=== PATIENT | female | born 1935 | race Caucasian/White ===

== ENCOUNTER 2016-09-17 09:47 | Inpatient (IN) | payer BC, OTHER ==
[~2016-09-17] VITALS: Ht 157.5 cm; Wt 60.0 kg
[2016-09-17 09:49] VITALS: Ht 157.5 cm; Wt 60.0 kg
[2016-09-17] MEDS ORDERED: SODIUM CHLORIDE 0.9% 1L BAG IV* STA (09:57)
[2016-09-17] MEDS ORDERED: ACETAMINOPHEN 325 MG TAB PO STA (09:57)
[2016-09-17 10:38] LABS: ADD SCAN DIFF NO
[2016-09-17 10:41] LABS: BASOPHILS % 0.1 % (0.0-2.0); EOSINOPHILS # 0.1 10^3/ul (0.0-0.5); EOSINOPHILS % 1.4 % (0.0-7.0); HEMATOCRIT 30.1 % (37.0-47.0); HEMOGLOBIN 9.4 g/dl (12.0-16.0); LYMPHOCYTES # 1.2 10^3/ul (0.8-2.9); LYMPHOCYTES % 16.6 % (15.0-51.0); MEAN CORPUSCULAR HEMOGLOBIN 21.9 pg (29.0-33.0); MEAN CORPUSCULAR HGB CONC 31.2 g/dl (32.0-37.0); MEAN CORPUSCULAR VOLUME 70.2 fl (82.0-101.0); MEAN PLATELET VOLUME 11.5 fl (7.4-10.4); MONOCYTE # 0.4 10^3/ul (0.3-0.9); NEUTROPHIL # 5.3 10^3/ul (1.6-7.5); NEUTROPHILS % 75.6 % (39.0-77.0); PLATELET COUNT 193 10^3/UL (140-415); RED BLOOD COUNT 4.29 10^6/ul (4.20-5.40); RED CELL DISTRIBUTION WIDTH 15.2 % (11.5-14.5)
[2016-09-17] MEDS ORDERED: DEXA0.5T PO (10:48)
[2016-09-17] MEDS ORDERED: ATOR40TA68 PO (10:48)
[2016-09-17] MEDS ORDERED: VENL37.59 PO (10:49)
[2016-09-17] MEDS ORDERED: FLUD0.1T10 PO (10:49)
[2016-09-17] MEDS ORDERED: DRON400T2 PO (10:49)
[2016-09-17] MEDS ORDERED: ASCO500C7 PO (10:50)
[2016-09-17] MEDS ORDERED: ASPI81TA3 PO (10:50)
[2016-09-17] MEDS ORDERED: LEVE250T66 PO (10:50)
[2016-09-17 10:54] LABS: INR 1.05; PROTIME 13.7 Sec (12.2-14.2); PT RATIO 1.1
[2016-09-17 10:55] LABS: PARTIAL THROMBOPLASTIN TIME 25.7 Sec (25.0-35.0)
[2016-09-17 11:00] LABS: ALBUMIN 4.2 g/dl (3.3-4.9); ALBUMIN/GLOBULIN RATIO 1.1; BILIRUBIN,INDIRECT 0.3 mg/dl (0-1.1); BILIRUBIN,TOTAL 0.3 mg/dl (0.2-1.3); CALCIUM 9.4 mg/dl (8.4-10.2); CREATININE 1.38 mg/dl (0.44-1.00); POTASSIUM 3.8 mmol/L (3.5-5.1)
[2016-09-17 11:09] LABS: TROPONIN-I 0.013 ng/ml (0.00-0.12)
--- NOTE | 2016-09-17 11:14 | RADRPT ---
PROCEDURE: XR Chest. CLINICAL INDICATION: Sepsis TECHNIQUE: Anterior chest x-ray. COMPARISON: None. FINDINGS: The lungs are clear. No pleural effusion identified. There is no evidence of pneumothorax. Dual lead left cardiac pacemaker demonstrates satisfactory position. There is atherosclerotic calcification of the aorta. The cardiomediastinal silhouette is otherwise unremarkable. The soft tissues are normal. Osseous structures are unremarkable. IMPRESSION: 1. No acute disease is seen in the chest. RPTAT: QQ .Romario Dumont MD, Date Time Electronically viewed and signed by .Romario Dumont MD, on 09/17/2016 11:13 .M/
--- NOTE | 2016-09-17 11:24 | ERA ---
ER Documentation Chief Complaint Date/Time DATE: 09/17/16 TIME: 11:23 Chief Complaint flu like symptoms x 3 days HPI 81-year-old female who presents to the emergency room with family member for 3 days of symptoms that are flulike symptoms including rhinorrhea, dry cough and slight malaise. No nausea vomiting or diarrhea, no abdominal pain, no dysuria, no flank pain, no sore throat, no headache, no rash. Lately decreased oral intake over this timeframe. ROS All systems reviewed and are negative except as per history of present illness. Medications Home Meds Reported Medications Ascorbic Acid* (Vitamin C*) 500 Mg Capsule.sa, 500 MG PO DAILY, CAP 09/17/16 Aspirin* (Aspirin* Chew) 81 Mg Tab.chew, 81 MG PO DAILY, TAB.CHEW 09/17/16 Levetiracetam* (Keppra*) 250 Mg Tab, 250 MG PO BID, TAB 09/17/16 Dronedarone Hydrochloride* (Multaq*) 400 Mg Tablet, 400 MG PO BID, TAB 09/17/16 Fludrocortisone* (Fludrocortisone*) 0.1 Mg Tablet, 0.1 MG PO DAILY, TAB 09/17/16 Venlafaxine Hcl* (Effexor XR*) 37.5 Mg Tab.er.24, 37.5 MG PO DAILY, TAB 09/17/16 Dexamethasone* (Dexamethasone*) 0.5 Mg Tablet, 0.25 MG PO DAILY, TAB 09/17/16 Atorvastatin* (Atorvastatin*) 40 Mg Tablet, 40 MG PO QHS, #30 TAB 09/17/16 Allergies Allergies: Coded Allergies: No Known Allergy (Unverified , 09/17/16) FmHx Family History: No diabetes Physical Exam Vitals Vital Signs Date Time Temp Pulse Resp B/P Pulse Ox O2 Delivery O2 Flow Rate FiO2 09/17/16 11:21 100.4 80 18 160/60 98 Room Air 09/17/16 10:35 Nasal Cannula 2 09/17/16 09:49 102.2 95 20 201/75 97 Physical Exam General: Well developed, well nourished, no acute distress Head: Normocephalic, atraumatic. Eyes: Pupils equally reactive, EOM intact ENT: Slightly dry mucous membranes Neck: Supple, no lymphadenopathy Respiratory: Lungs clear bilaterally, no distress Cardiovascular: RRR, no murmurs, rubs, or gallops Abdominal: Soft, non-tender, non-distended, no peritoneal signs : Deferred MSK: No edema, no unilateral swelling, 5/5 strength Neurologic: Alert and oriented, moving all extremities, normal speech, no focal weakness, no cerebellar signs, no meningismus Skin: No rash Psych: Normal mood Result Diagram: 09/17/16 1012 09/17/16 1012 Results 24 hrs Laboratory Tests Test 09/17/16 10:12 09/17/16 11:18 White Blood Count 7.010^3/ul Red Blood Count 4.2910^6/ul Hemoglobin 9.4g/dl Hematocrit 30.1% Mean Corpuscular Volume 70.2fl Mean Corpuscular Hemoglobin 21.9pg Mean Corpuscular Hemoglobin Concent 31.2g/dl Red Cell Distribution Width 15.2% Platelet Count 72238^3/UL Mean Platelet Volume 11.5fl Neutrophils % 75.6% Lymphocytes % 16.6% Monocytes % 6.0% Eosinophils % 1.4% Basophils % 0.1% Nucleated Red Blood Cells % 0.0/100WBC Neutrophils # 5.310^3/ul Lymphocytes # 1.210^3/ul Monocytes # 0.410^3/ul Eosinophils # 0.110^3/ul Basophils # 0.010^3/ul Nucleated Red Blood Cells # 0.010^3/ul Prothrombin Time 13.7Sec Prothrombin Time Ratio 1.1 INR International Normalized Ratio 1.05 Activated Partial Thromboplast Time 25.7Sec Sodium Level 137mmol/L Potassium Level 3.8mmol/L Chloride Level 99mmol/L Carbon Dioxide Level 29mmol/L Anion Gap 13 Blood Urea Nitrogen 19mg/dl Creatinine 1.38mg/dl Glucose Level 153mg/dl Lactic Acid Level 2.2mmol/L Calcium Level 9.4mg/dl Total Bilirubin 0.3mg/dl Direct Bilirubin 0.00mg/dl Indirect Bilirubin 0.3mg/dl Aspartate Amino Transf (AST/SGOT) 27IU/L Alanine Aminotransferase (ALT/SGPT) 27IU/L Alkaline Phosphatase 65IU/L Troponin I 0.013ng/ml Total Protein 8.0g/dl Albumin 4.2g/dl Globulin 3.80g/dl Albumin/Globulin Ratio 1.10 Urine Color LT. YELLOW Urine Clarity CLEAR Urine pH 6.0 Urine Specific [place] 1.020 Urine Ketones NEGATIVE Urine Nitrite NEGATIVE Urine Bilirubin NEGATIVE Urine Urobilinogen 0.2 E.U./dL Urine Leukocyte Esterase NEGATIVE Urine Hemoglobin NEGATIVE Urine Glucose NEGATIVE% Urine Total Protein NEGATIVE Current Medications Medications (Trade) Dose Ordered Sig/Patricia Route PRN Reason Start Time Stop Time Status Last Admin Dose Admin Sodium Chloride (NS) 1,860 ml BOLUS OVER 2 HOURS STAT IV* 09/17/16 09:57 09/17/16 09:59 DC 09/17/16 10:34 Acetaminophen (Tylenol Tab) 650 mg ONCE STAT PO 09/17/16 09:57 09/17/16 10:00 DC 09/17/16 10:27 Oseltamivir Phosphate (Tamiflu) 75 mg ONCE ONCE PO 09/17/16 12:00 09/17/16 12:01 DC 09/17/16 11:47 Procedures/MDM EKG, MONITORS, & DIAGNOSTIC IMAGING: EKG: I reviewed and interpreted a 12-lead EKG. Rhythm: Normal sinus rhythm Ectopy: None Intervals: No abnormalities ST segments: No elevations or depressions T waves: No contiguous inversions Chest x-ray: I reviewed and interpreted a 1 view of the chest Mediastinum: No enlargement Cardiac silhouette: No cardiomegaly Airspace: Clear lung agustin bilaterally without evidence of pneumothorax Bones: No evidence of fracture LAB INTERPRETATION: No leukocytosis MEDICAL DECISION MAKING: The patient presents with fever, generalized malaise and cough. Concern for possible pneumonia versus viral syndrome versus influenza. No evidence of meningitis or acute intra-abdominal process, consider UTI. Low threshold for hospitalization given patient's age. The patient will benefit from fluid resuscitation, antipyretics and reevaluation. ER COURSE: The patient's fever has improved. The patient has Sirs with no source. Consider possible viral process. Even though influenza test is negative, poor sensitivity. Tamiflu initiated. I discussed inpatient versus outpatient management. However given the patient's age and risk for comorbidities and complications I recommend inpatient hospitalization. Patient is agreeable. The patient continues to be well-appearing and we will continue with fluid resuscitation. No indication for antibiotics currently. No evidence of meningitis. I kept the patient and/or family informed of laboratory and diagnostic imaging results throughout the emergency room course. DISPOSITION PLAN: Medical surgical admission for management of viral syndrome CONSULTATION: Accepting care team and consultations: I discussed the current laboratory data, diagnostic imaging and emergency care provided. Admitting team: Dr. Streeter Admitting team indication: Insurance directed Departure Diagnosis: Primary Impression: Viral syndrome Additional Impression: Influenza-like illness Condition: Stable SUNIL WOOTEN MD September 17, 2016 11:24
[2016-09-17 11:42] LABS: ADD UMIC NO; URINE BILIRUBIN (Dip) NEGATIVE (NEGATIVE); URINE BLOOD (Dip) NEGATIVE (NEGATIVE); URINE COLOR LT. YELLOW (YELLOW); URINE GLUCOSE (Dip) NEGATIVE (NEGATIVE); URINE KETONES (Dip) NEGATIVE (NEGATIVE); URINE LEUKOCYTE ESTERASE (Dip) NEGATIVE (NEGATIVE); URINE NITRITE (Dip) NEGATIVE (NEGATIVE); URINE TOTAL PROTEIN (Dip) NEGATIVE (NEGATIVE); URINE UROBILINOGEN (Dip) 0.2 E.U./dL (0.1-1.0)
[2016-09-17] MEDS ORDERED: OSELTAMIVIR 75 MG CAP PO ONE (12:00)
[2016-09-17 12:14] VITALS: TEMP 99.4
[2016-09-17] MEDS ORDERED: ACETAMINOPHEN 325 MG TAB PO PRN (12:30)
[2016-09-17] MEDS ORDERED: ONDANSETRON 4 MG INJ IV PRN (12:30)
[2016-09-17 13:18] VITALS: BP 119/66; PULSE 119
[2016-09-17] MEDS ORDERED: SOD CHLORIDE 0.9% 1,000 ML IV ONE (14:00)
[2016-09-17] MEDS ORDERED: SOD CHLORIDE 0.9% 500 ML IV ONE (14:30)
--- NOTE | 2016-09-17 14:34 | HP ---
Date/Time of Note Date/Time of Note DATE: 09/17/16 TIME: 14:23 Assessment/Plan VTE Prophylaxis VTE Prophylaxis Intervention: LMWH Assessment/Plan Assessment/Plan 79-year-old female who was brought into the emergency room because of fever and cough for the last 4 days now managed for the followin. Sepsis thought to be secondary to viral syndrome / acute bronchitis 2. Atrial fibrillation for which we cannot rule out a rapid ventricular response as patient is not currently on security monitor 3. History of sick sinus syndrome status post pacemaker 4. Depression 5. History of falls and one seizure episode 6. Possible orthostatic hypotension on fludrocortisone 7. Dyslipidemia 8. History of ovarian cancer for which she has been cancer free for more than 20 years previous CVA 9. Previous stroke 10. Hypochromic microcytic anemia PLAN: * This patient needs to be monitored on telemetry floor / rule out an acute coronary syndrome / gentle hydration to see if tachycardia will improve * iron profile * Will begin empiric antibiotics as well /continue Tamiflu started by emergency room doctor * continue all previous home medications except the dexamethasone for which she was started on for allergies * Supportive care * Fall precautions * further interventions per clinical course Prophylaxis: Lovenox and H2 blockers HPI/ROS Admit Date/Time Admit Date/Time September 17, 2016 at 12:02 Hx of Present Illness PRESENTING COMPLAINT: fever , lethargy HISTORY OF PRESENTING COMPLAINT: This is an 81-year-old female with a past medical history of atrial fibrillation, depression, and history of falls and an isolated seizure episode a few years ago as well as orthostatic hypotension who was brought into the emergency room today at the base of the behest of her family because of fever and lethargy for the last 4 days. Per the family at the bedside the patient has been having intermittent fever for the last 4 days, and patient does report cough and occasional shortness of breath and very mild difficulty breathing intermittently. She denies dysuria or hematuria, her cough is nonproductive. She denies passing out episodes, she also had some palpitations prior to arrival but this has improved. She denies joint pain or swelling, denies lower extremity edema. She has not noted any skin redness or rash. Last bowel movement was yesterday and it was normal. Patient is usually ambulant without the support of a cane or a walker. She has had no passing out episodes for the last 1 year. She was recently treated by her primary care doctor with low-dose dexamethasone for allergies. ROS 12 point review if systems was done and pertinent findings are as noted. PMH/Family/Social Past Medical History * Atrial fibrillation * History of sick sinus syndrome status post pacemaker * Depression * History of falls and one seizure episode * Possible orthostatic hypotension on fludrocortisone * Dyslipidemia * History of ovarian cancer for which she has been cancer free for more than 20 years previous CVA * Previous stroke Past Surgical History * Total hysterectomy for ovarian cancer * Pacemaker placement * Partial bowel resection for bowel obstruction unclear if it is small or large. Family History Significant Family History: no pertinent family hx (Quit more than 20 years ago ) Social History Alcohol Use: sober Smoking Status: Former smoker Drug Use: none Exam/Review of Systems Vital Signs Vitals VS - Last 72 Hours, by Label Date Time Temp Pulse Resp B/P Pulse Ox O2 Delivery O2 Flow Rate FiO2 09/17/16 13:18 99.5 119 119/66 98 Room Air 09/17/16 12:36 110 17 135/79 96 Room Air 09/17/16 12:14 99.4 80 18 150/98 98 Room Air 09/17/16 11:21 100.4 80 18 160/60 98 Room Air 09/17/16 10:35 Nasal Cannula 2 09/17/16 09:49 102.2 95 20 201/75 97 Vital Signs Date Time Temp Pulse Resp B/P Pulse Ox O2 Delivery O2 Flow Rate FiO2 09/17/16 13:18 99.5 119 119/66 98 Room Air 09/17/16 12:36 17 09/17/16 10:35 2 Exam Constitutional: alert, frail, oriented, other (Mild expressive aphasia very mild), No distress Psych: nl mood/affect (Reports feeling better) Head: atraumatic, normocephalic Eyes: PERRL, No icteric ENMT: other (Posterior pharynx is slightly inflamed) Neck: non-tender, supple, No jvd Respiratory: diminished breath sounds, other (Dry cough without wheezing), No crackles/rales, No labored breathing Cardiovascular: irregular rhythm, No murmurs/extra sounds, No regular rate and rhythm Gastrointestinal: bowel sounds, non-tender, soft Genitourinary - Female: nl adnexae, nl external genitalia Musculoskeletal: nl extremities to inspection Extremities: No edema Neurological: lethargic, nl mental status Skin: No rash or lesions Labs Result Diagram: 09/17/16 1012 09/17/16 1012 Medications Medications Current Medications Atorvastatin Calcium (Lipitor) 40 mg HS PO ; Start 09/17/16 at 21:00 Fludrocortisone Acetate (Florinef) 0.1 mg DAILY PO ; Start 09/18/16 at 09:00 Levetiracetam 250 mg 250 mg BID PO ; Start 09/17/16 at 21:00 Sodium Chloride (NS) 500 ml @ 500 mls/hr Q1H ONCE IV ; Start 09/17/16 at 14:30 ; Stop 09/17/16 at 15:29 Aspirin 81 mg 81 mg DAILY PO ; Start 09/18/16 at 09:00 Sodium Chloride 1,000 ml @ 1,000 mls/hr Q1H ONCE IV ; Start 09/17/16 at 14:00; Stop 09/17/16 at 14:59 Sodium Chloride (NS) 1,000 ml @ 75 mls/hr [id number] IV ; Start 09/17/16 at 14:00 Procedures Procedures Laboratory Tests Test 09/17/16 10:12 09/17/16 11:18 09/17/16 12:15 White Blood Count 7.010^3/ul Red Blood Count 4.2910^6/ul Hemoglobin 9.4g/dl Hematocrit 30.1% Mean Corpuscular Volume 70.2fl Mean Corpuscular Hemoglobin 21.9pg Mean Corpuscular Hemoglobin Concent 31.2g/dl Red Cell Distribution Width 15.2% Platelet Count 71073^3/UL Mean Platelet Volume 11.5fl Neutrophils % 75.6% Lymphocytes % 16.6% Monocytes % 6.0% Eosinophils % 1.4% Basophils % 0.1% Nucleated Red Blood Cells % 0.0/100WBC Neutrophils # 5.310^3/ul Lymphocytes # 1.210^3/ul Monocytes # 0.410^3/ul Eosinophils # 0.110^3/ul Basophils # 0.010^3/ul Nucleated Red Blood Cells # 0.010^3/ul Prothrombin Time 13.7Sec Prothrombin Time Ratio 1.1 INR International Normalized Ratio 1.05 Activated Partial Thromboplast Time 25.7Sec Sodium Level 137mmol/L Potassium Level 3.8mmol/L Chloride Level 99mmol/L Carbon Dioxide Level 29mmol/L Anion Gap 13 Blood Urea Nitrogen 19mg/dl Creatinine 1.38mg/dl Glucose Level 153mg/dl Lactic Acid Level 2.2mmol/L 1.1mmol/L Calcium Level 9.4mg/dl Total Bilirubin 0.3mg/dl Direct Bilirubin 0.00mg/dl Indirect Bilirubin 0.3mg/dl Aspartate Amino Transf (AST/SGOT) 27IU/L Alanine Aminotransferase (ALT/SGPT) 27IU/L Alkaline Phosphatase 65IU/L Troponin I 0.013ng/ml Total Protein 8.0g/dl Albumin 4.2g/dl Globulin 3.80g/dl Albumin/Globulin Ratio 1.10 Urine Color LT. YELLOW Urine Clarity CLEAR Urine pH 6.0 Urine Specific [place] 1.020 Urine Ketones NEGATIVE Urine Nitrite NEGATIVE Urine Bilirubin NEGATIVE Urine Urobilinogen 0.2 E.U./dL Urine Leukocyte Esterase NEGATIVE Urine Hemoglobin NEGATIVE Urine Glucose NEGATIVE% Urine Total Protein NEGATIVE I reviewed EKG Rate: tachycardia Rhythm: sinus Note: No ST elevation or depressions noted concerning for acute ischemic event. PROCEDURE: XR Chest. CLINICAL INDICATION: Sepsis TECHNIQUE: Anterior chest x-ray. COMPARISON: None. FINDINGS: The lungs are clear. No pleural effusion identified. There is no evidence of pneumothorax. Dual lead left cardiac pacemaker demonstrates satisfactory position. There is atherosclerotic calcification of the aorta. The cardiomediastinal silhouette is otherwise unremarkable. The soft tissues are normal. Osseous structures are unremarkable. IMPRESSION: 1. No acute disease is seen in the chest. RPTAT: QQ .Romario Dumont MD, MD Date Time Electronically viewed and signed by .Romario Dumont MD, MD on 09/17/2016 11: 13 .M/ CC: SUNIL WOOTEN MD ABE, BOLATITO M. September 17, 2016 14:34
[2016-09-17] MEDS ORDERED: LEVOFLOXACIN 500MG/D5W (PMX) 100 ML IVPB SCH (15:00)
[2016-09-17] MEDS: SOD CHLORIDE 0.9% 1,000 ML IV SCH (15:53)
[2016-09-17 15:58] VITALS: BP 140/64; PULSE 9; PULSE 93
[2016-09-17] MEDS: DRONEDARONE HYDROCHLORIDE 400 MG TAB PO SCH ×2 (17:34→20:29)
[2016-09-17] MEDS: PROMETHAZINE/CODEINE 5ML CUP PO PRN ×2 (17:35→21:39)
[2016-09-17 19:13] LABS: CK-MB 0.72 ng/ml (0.0-2.4)
[2016-09-17 19:18] VITALS: PULSE 90
[2016-09-17 19:25] LABS: TROPONIN-I 0.412 ng/ml (0.00-0.12)
[2016-09-17 20:02] VITALS: PULSE 91
[2016-09-17 20:12] VITALS: BP 161/81; RESP 18
[2016-09-17] MEDS: FAMOTIDINE 20 MG TAB PO SCH (20:28)
[2016-09-17] MEDS: DOCUSATE SODIUM 100 MG CAP PO SCH (20:28)
[2016-09-17] MEDS: ATORVASTATIN 40 MG TAB PO SCH (20:28)
[2016-09-17] MEDS ORDERED: LEVETIRACETAM 250 MG TAB PO SCH (21:00)
[2016-09-17] MEDS ORDERED: DRONEDARONE HYDROCHLORIDE 400 MG TAB PO SCH (21:00)
[2016-09-17] MEDS ORDERED: ATORVASTATIN 40 MG TAB PO SCH (21:00)
[2016-09-17] MEDS: LEVETIRACETAM 250 MG TAB PO SCH (21:39)
[2016-09-18] VITALS (12 sets, daily range): BP systolic 125–185; BP diastolic 53–79; PULSE 73–90; RESP 16–20
[2016-09-18 01:49] LABS: CK-MB 0.76 ng/ml (0.0-2.4)
[2016-09-18] MEDS: PROMETHAZINE/CODEINE 5ML CUP PO PRN ×2 (02:05→07:38)
[2016-09-18 02:18] LABS: TROPONIN-I 0.673 ng/ml (0.00-0.12)
[2016-09-18] MEDS: SOD CHLORIDE 0.9% 1,000 ML IV SCH (03:20)
[2016-09-18 07:05] LABS: ADD SCAN DIFF NO
[2016-09-18 07:24] LABS: BASOPHILS % 0.2 % (0.0-2.0); EOSINOPHILS % 0.7 % (0.0-7.0); HEMATOCRIT 24.3 % (37.0-47.0); HEMOGLOBIN 7.8 g/dl (12.0-16.0); LYMPHOCYTES % 33.9 % (15.0-51.0); MEAN CORPUSCULAR HEMOGLOBIN 22.4 pg (29.0-33.0); MEAN CORPUSCULAR HGB CONC 32.1 g/dl (32.0-37.0); MEAN CORPUSCULAR VOLUME 69.8 fl (82.0-101.0); MEAN PLATELET VOLUME 11.6 fl (7.4-10.4); MONOCYTE # 0.5 10^3/ul (0.3-0.9); MONOCYTES % 8.9 % (0.0-11.0); NEUTROPHIL # 3.3 10^3/ul (1.6-7.5); PLATELET COUNT 153 10^3/UL (140-415); RED BLOOD COUNT 3.48 10^6/ul (4.20-5.40); RED CELL DISTRIBUTION WIDTH 15.1 % (11.5-14.5); WHITE BLOOD COUNT 5.8 10^3/ul (4.8-10.8)
[2016-09-18 07:37] LABS: INR 1.27; IRON 18 ug/dl (35-150); PT RATIO 1.3
[2016-09-18 07:38] LABS: PARTIAL THROMBOPLASTIN TIME 30.4 Sec (25.0-35.0)
[2016-09-18 07:48] LABS: TOTAL IRON BINDING CAPACITY 220 ug/dl (241-421)
[2016-09-18 08:00] LABS: CALCIUM 8.5 mg/dl (8.4-10.2); CREATININE 1.14 mg/dl (0.44-1.00); POTASSIUM 4.1 mmol/L (3.5-5.1)
[2016-09-18 08:09] LABS: THYROID STIMULATING HORMONE 3.7 MIU/L (0.465-4.680)
[2016-09-18] MEDS ORDERED: VENLAFAXINE 37.5 MG TAB PO SCH (09:00)
[2016-09-18] MEDS ORDERED: VENLAFAXINE (XR) 37.5 MG CAP PO SCH (09:00)
[2016-09-18] MEDS ORDERED: FLUDROCORTISONE 0.1 MG TAB PO SCH (09:00)
[2016-09-18] MEDS ORDERED: DEXAMETHASONE 1 MG TAB PO SCH (09:00)
[2016-09-18] MEDS ORDERED: ASPIRIN 81 MG TAB PO ONE (09:00)
[2016-09-18] MEDS ORDERED: ASCORBIC ACID 500 MG TAB PO SCH (09:00)
[2016-09-18] MEDS: LEVETIRACETAM 250 MG TAB PO SCH ×2 (09:17→20:52)
[2016-09-18] MEDS: ASPIRIN 81 MG TAB PO SCH ×2 (09:18→13:07)
[2016-09-18] MEDS: ENOXAPARIN 40 MG/0.4 ML SYG SC SCH (09:26)
[2016-09-18] MEDS: DRONEDARONE HYDROCHLORIDE 400 MG TAB PO SCH ×2 (09:28→20:52)
[2016-09-18] MEDS: FAMOTIDINE 20 MG TAB PO SCH (09:29)
[2016-09-18] MEDS: FLUDROCORTISONE 0.1 MG TAB PO SCH (09:29)
--- NOTE | 2016-09-18 11:04 | PN ---
Date/Time of Note Date/Time of Note DATE: 09/18/16 TIME: 10:57 Assessment/Plan VTE Prophylaxis VTE Prophylaxis Intervention: LMWH Lines/Catheters IV [facility] Peripheral IV Urinary Cath still in place: No Assessment/Plan Assessment/Plan 79-year-old female who was brought into the emergency room because of fever and cough for the last 4 days now managed for the followin. Sepsis thought to be secondary to viral syndrome / acute bronchitis 2. Elevated troponin likely from demand, however rule out acute NSTEMI 2. Paroxysmal atrial fibrillation : Currently rate controlled. Patient has refused anticoagulation therapy per family. 3. History of sick sinus syndrome status post pacemaker 4. Depression 5. History of falls and one seizure episode 6. Possible orthostatic hypotension on fludrocortisone 7. Dyslipidemia 8. History of ovarian cancer for which she has been cancer free for more than 20 years previous CVA 9. Previous stroke 10. Hypochromic microcytic anemia likely secondary to iron deficiency, source unknown at this time. Likely as a result of poor nutrition PLAN: * Patient seems overall improved as to my assessment yesterday, she does not look like she is having an acute cardiac event. She is sinus rhythm with normal rate on the monitor. At this time will give an extra dose of 81 mg aspirin, notify cardiology for consultation. I will keep her n.p.o. after breakfast without caffeine for in case of intervention, I will hold off on starting full dose anticoagulation unless instructed to do so by cardiology. * Begin iron replacement therapy * Continue supportive care * Fall precautions * further interventions per clinical course Prophylaxis: Lovenox and H2 blockers Subjective 24 Hr Interval Summary Free Text/Dictation Patient doing well. Denies chest pain. Denies palpitation. Denies shortness of breath. Hungry asking to eat. Exam/Review of Systems Vital Signs Vitals Vital Signs Date Time Temp Pulse Resp B/P Pulse Ox O2 Delivery O2 Flow Rate FiO2 09/18/16 08:00 77 09/18/16 07:26 98.0 18 185/79 90 09/17/16 15:58 Room Air 09/17/16 10:35 2 Intake and Output 09/17/16 09/17/16 09/18/16 15:00 23:00 07:00 Intake Total 600 ml 1150 ml Output Total 700 ml Balance 600 ml 450 ml Exam Constitutional: alert, frail, oriented, other (Mild expressive aphasia very mild), No distress Psych: nl mood/affect (Reports feeling better) Head: atraumatic, normocephalic Eyes: PERRL, No icteric Neck: non-tender, supple, No jvd Respiratory: diminished breath sounds, No crackles/rales, No labored breathing Cardiovascular: irregular rhythm, Stage 3/6 systolic murmurs/extra sounds, No regular rate and rhythm Gastrointestinal: bowel sounds, non-tender, soft Genitourinary - Female: nl adnexae, nl external genitalia Musculoskeletal: nl extremities to inspection Extremities: No edema Neurological: lethargic, nl mental status Skin: No rash or lesions Results Result Diagram: 09/18/16 0650 09/18/16 0650 Results 24 hrs Laboratory Tests Test 09/17/16 11:18 09/17/16 12:15 09/17/16 18:27 09/18/16 00:50 Urine Color LT. YELLOW Urine Clarity CLEAR Urine pH 6.0 Urine Specific [place] 1.020 Urine Ketones NEGATIVE Urine Nitrite NEGATIVE Urine Bilirubin NEGATIVE Urine Urobilinogen 0.2 E.U./dL Urine Leukocyte Esterase NEGATIVE Urine Hemoglobin NEGATIVE Urine Glucose NEGATIVE Urine Total Protein NEGATIVE Lactic Acid Level 1.1 1.4 Magnesium Level 1.6 L Creatine Kinase 144 171 Creatine Kinase Index 0.5 0.4 Creatinine Kinase MB (Mass) 0.72 0.76 Troponin I 0.412 *H 0.673 *H Test 09/18/16 06:50 09/18/16 09:45 White Blood Count 5.8 Red Blood Count 3.48 L Hemoglobin 7.8 L Hematocrit 24.3 L Mean Corpuscular Volume 69.8 L Mean Corpuscular Hemoglobin 22.4 L Mean Corpuscular Hemoglobin Concent 32.1 Red Cell Distribution Width 15.1 H Platelet Count 153 # Mean Platelet Volume 11.6 H Neutrophils % 56.0 Lymphocytes % 33.9 Monocytes % 8.9 Eosinophils % 0.7 Basophils % 0.2 Nucleated Red Blood Cells % 0.0 Neutrophils # 3.3 Lymphocytes # 2.0 Monocytes # 0.5 Eosinophils # 0.0 Basophils # 0.0 Nucleated Red Blood Cells # 0.0 Prothrombin Time 16.0 H Prothrombin Time Ratio 1.3 INR International Normalized Ratio 1.27 Activated Partial Thromboplast Time 30.4 Sodium Level 137 Potassium Level 4.1 Chloride Level 106 Carbon Dioxide Level 27 Anion Gap 8 Blood Urea Nitrogen 15 Creatinine 1.14 H Glucose Level 86 # Hemoglobin A1c 5.5 Calcium Level 8.5 Iron Level 18 L Total Iron Binding Capacity 220 L Percent Iron Saturation 8 L Thyroid Stimulating Hormone (TSH) 3.700 Troponin I 0.350 *H Medications Medications Current Medications Atorvastatin Calcium (Lipitor) 40 mg HS PO Last administered on 09/17/16 20:28 ; Admin Dose 40 MG; Start 09/17/16 at 21:00 Fludrocortisone Acetate (Florinef) 0.1 mg DAILY PO Last administered on 09:29; Admin Dose 0.1 MG; Start 09/18/16 at 09:00 Levetiracetam (Keppra) 250 mg BID PO Last administered on 09/18/16 09:17; Admin Dose 250 MG; Start 09/17/16 at 21:00 Aspirin 81 mg 81 mg DAILY PO Last administered on 09/18/16 09:18; Admin Dose 81 MG; Start 09/18/16 at 09:00 Sodium Chloride (NS) 1,000 ml @ 75 mls/hr [id number] IV Last administered on 09/18 03:20; Admin Dose 75 MLS/HR; Start 09/17/16 at 14:00 Docusate Sodium (Colace) 100 mg BID PO Last administered on 09/17/16 20:28; Admin Dose 100 MG; Start 09/17/16 at 21:00 Famotidine (Pepcid) 20 mg DAILY PO Last administered on 09/18/16 09:29; Admin Dose 20 MG; Start 09/17/16 at 21:00 Enoxaparin Sodium 40 mg 40 mg DAILY SC Last administered on 09/18/16 09:26; Admin Dose 40 MG; Start 09/18/16 at 09:00 Levofloxacin/ Dextrose (Levaquin 250 Mg/ D5W 50 ml (Pmx)) 50 ml @ 50 mls/hr Q24H IVPB ; Start 09/18/16 at 15:00 Promethazine HCl/ Codeine (Phenergan/ Codeine) 5 ml Q4 PRN PO COUGH Last administered on 09/18/16 07:38; Admin Dose 5 ML; Start 09/17/16 at 17:30 Aspirin (Aspirin) 81 mg ONCE PO ; Start 09/19/16 at 09:00; Stop 09/19/16 at 23: 00 ZULEMA PATEL September 18, 2016 11:04
--- NOTE | 2016-09-18 12:46 | RADRPT ---
Echocardiogram Report Patient Name: PETER RAMOS Gender: Female Date: 1935 Study Date: 17-Sep-2016 [place] Attendant: Wanda Mena [facility] Location: [id number] Ref. Physician: ZULEMA PATEL Quality: Good Procedures: Transthoracic echocardiogram with complete 2D, M-Mode, and doppler examination. Indications: Atrial Fibrillation w/ RVR. 2D/M Mode Doppler Measurement Value Normal Ranges Measurement Value Normal Ranges LVIDd 2D 3.6 3.5 - 5.6 cm AV Peak [place] 1.4 m/sec LVIDs 2D 2.4 2.1 - 4.1 cm AV Peak PG 7.3 mmHg LVPWd 2D 1.3 0.6 - 1.1 cm LVOT Peak [place] 1.2 m/sec IVSd 2D 1.5 0.6 - 1.1 cm LVOT Peak PG 5.3 mmHg AoR Diam 2D 1.8 2.0 - 3.7 cm MV E Peak [place] 1.2 m/sec EDV 2D 53.6 cm3 MV A Peak [place] 0.0 m/sec ESV 2D 13.4 cm3 MV E/A 30.0 LA Dimen 2D 3.5 2.3 - 4.0 cm MV Decel Time 235 msec MV Decel [place] 5 MV E/A 30.0 TR Peak [place] 2.9 m/sec TR Peak PG 33.1 mmHg RVSP 36.0 mmHg Findings Left Ventricle: Normal left ventricular systolic function. Normal left ventricular cavity size. Moderate concentric left ventricular hypertrophy. Ejection fraction is visually estimated at 65 %. Abnormal Diastolic Function. Right Ventricle: Normal right ventricular size. Normal right ventricular systolic function. Left Atrium: The left atrium is normal in size. Right Atrium: The right atrium is normal in size. Mitral Valve: Moderate mitral leaflet calcification. Mild mitral annular calcification. Trace mitral regurgitation. Aortic Valve: No significant aortic stenosis or insufficiency. Aortic cusps appear mildly calcified. Tricuspid Valve: Normal appearance of the tricuspid valve. Estimated peak PA systolic pressure 36 mmHg. There is mild tricuspid regurgitation. Pulmonic Valve: Normal pulmonic valve appearance. Pericardium: Normal pericardium with no significant pericardial effusion. Aorta: Normal aortic root. IVC: Normal size and normal respiratory collapse consistent with normal right atrial pressure. Conclusions Normal left ventricular systolic function. Normal left ventricular cavity size. Moderate concentric left ventricular hypertrophy. Ejection fraction is visually estimated at 65 %. Abnormal Diastolic Function. Normal right ventricular size. Normal right ventricular systolic function. The left atrium is normal in size. The right atrium is normal in size. Trace mitral regurgitation. No significant aortic stenosis or insufficiency. Estimated peak PA systolic pressure 36 mmHg. There is mild tricuspid regurgitation. Normal pericardium with no significant pericardial effusion. Electronically Signed By: Miguel Ball 18-Sep-2016 12:45:45 -0700 Patient Name: PETER RAMOS Study Date: 17-Sep-2016 [id number]
[2016-09-18] MEDS ORDERED: ASPIRIN 81 MG TAB PO SCH (13:00)
--- NOTE | 2016-09-18 13:01 | CONS ---
Date/Time of Note Date/Time of Note DATE: 09/18/16 TIME: 12:54 Assessment/Plan Assessment/Plan Additional Assessment/Plan Cough, fevers, chills and myalgias SIRS Mildly elevated troponin Preserved ejection fraction History of pacemaker History of CVA Acute kidney injury -Patient denies any symptoms of chest pain or shortness of breath. ECG without any significant ischemic abnormalities. Troponins mildly elevated and trending down. This is likely secondary to SIRS/Sepsis as well as tachycardia and acute kidney injury. Patient is on Multaq as an outpatient. Patient is unsure of history of atrial fibrillation and she is currently in sinus rhythm. Would continue aspirin, statin therapy. Heart rate has improved. She is on dexamethasone and Florinef on her home medication list with possible history of hypotension. Would hold off on initiation of beta-toan at the current time. Continue telemetry monitoring. Consultation Date/Type/Reason Admit Date/Time September 17, 2016 at 12:02 Type of Consultation: cv Reason for Consultation Elevated troponin Hx of Present Illness This is an 81-year-old female with past medical history of CVA, pacemaker, hypertension who presents with myalgias, fevers, chills, cough and runny nose. Symptoms have been progressing over the past 3-4 days as well as severe fatigue. Patient was admitted for further evaluation and care. Patient with elevated troponin for this reason cardiology consultation was requested. Patient denies any chest pain, shortness of breath, palpitations. On review of medical chart, patient was on medical surgical floor was found to be tachycardic. She is currently feeling better today. She does have a map and chart mounter which she sees on a regular basis but unfortunately does not know his name. 12 point review of systems was performed with all pertinent positives and negatives mentioned above and all else is negative Psychological: nl mood/affect (Reports feeling better) Past Medical History History of CVA Syncope requiring pacemaker Medical History: hypertension Past Surgical History Pacemaker Family History Significant Family History: no pertinent family hx Social History Alcohol Use: sober Smoking Status: Former smoker Drug Use: none Exam/Review of Systems Vital Signs Vitals Vital Signs Date Time Temp Pulse Resp B/P Pulse Ox O2 Delivery O2 Flow Rate FiO2 09/18/16 12:00 78 09/18/16 11:55 98.0 18 155/67 99 09/17/16 15:58 Room Air 09/17/16 10:35 2 Intake and Output 09/17/16 09/17/16 09/18/16 15:00 23:00 07:00 Intake Total 600 ml 1150 ml Output Total 700 ml Balance 600 ml 450 ml Exam Constitutional: alert, frail, oriented (Occasional confusion with memory loss, no apparent distress) Neck: supple Respiratory: other (Coarse breath sounds bilaterally, no wheezing) Cardiovascular: other (S1-S2 heard), regular rate and rhythm Gastrointestinal: bowel sounds, non-tender, other (No guarding), soft Extremities: edema (Trace) Results Result Diagram: 09/18/16 0650 09/18/16 0650 Results 24 hrs Laboratory Tests Test 09/17/16 18:27 09/18/16 00:50 09/18/16 06:50 09/18/16 09:45 Lactic Acid Level 1.4 Magnesium Level 1.6 L Creatine Kinase 144 171 Creatine Kinase Index 0.5 0.4 Creatinine Kinase MB (Mass) 0.72 0.76 Troponin I 0.412 *H 0.673 *H 0.350 *H White Blood Count 5.8 Red Blood Count 3.48 L Hemoglobin 7.8 L Hematocrit 24.3 L Mean Corpuscular Volume 69.8 L Mean Corpuscular Hemoglobin 22.4 L Mean Corpuscular Hemoglobin Concent 32.1 Red Cell Distribution Width 15.1 H Platelet Count 153 # Mean Platelet Volume 11.6 H Neutrophils % 56.0 Lymphocytes % 33.9 Monocytes % 8.9 Eosinophils % 0.7 Basophils % 0.2 Nucleated Red Blood Cells % 0.0 Neutrophils # 3.3 Lymphocytes # 2.0 Monocytes # 0.5 Eosinophils # 0.0 Basophils # 0.0 Nucleated Red Blood Cells # 0.0 Prothrombin Time 16.0 H Prothrombin Time Ratio 1.3 INR International Normalized Ratio 1.27 Activated Partial Thromboplast Time 30.4 Sodium Level 137 Potassium Level 4.1 Chloride Level 106 Carbon Dioxide Level 27 Anion Gap 8 Blood Urea Nitrogen 15 Creatinine 1.14 H Glucose Level 86 # Hemoglobin A1c 5.5 Calcium Level 8.5 Iron Level 18 L Total Iron Binding Capacity 220 L Percent Iron Saturation 8 L Thyroid Stimulating Hormone (TSH) 3.700 Medications Medications Current Medications Atorvastatin Calcium (Lipitor) 40 mg HS PO Last administered on 09/17/16t 20:28 ; Admin Dose 40 MG; Start 09/17/16 at 21:00 Fludrocortisone Acetate (Florinef) 0.1 mg DAILY PO Last administered on 09:29; Admin Dose 0.1 MG; Start 09/18/16 at 09:00 Levetiracetam (Keppra) 250 mg BID PO Last administered on 09/18/16 09:17; Admin Dose 250 MG; Start 09/17/16 at 21:00 Aspirin (Aspirin) 81 mg DAILY PO Last administered on 09/18/16 09:18; Admin Dose 81 MG; Start 09/18/16 at 09:00 Docusate Sodium (Colace) 100 mg BID PO Last administered on 09/17/16 20:28; Admin Dose 100 MG; Start 09/17/16 at 21:00 Famotidine (Pepcid) 20 mg DAILY PO Last administered on 09/18/16 09:29; Admin Dose 20 MG; Start 09/17/16 at 21:00 Enoxaparin Sodium 40 mg 40 mg DAILY SC Last administered on 09/18/16 09:26; Admin Dose 40 MG; Start 09/18/16 at 09:00 Levofloxacin/ Dextrose (Levaquin 250 Mg/ D5W 50 ml (Pmx)) 50 ml @ 50 mls/hr Q24H IVPB ; Start 09/18/16 at 15:00 Promethazine HCl/ Codeine 5 ml 5 ml Q4 PRN PO COUGH Last administered on 07:38; Admin Dose 5 ML; Start 09/17/16 at 17:30 Ferric Sodium Gluconate Complex/ Sodium Chloride (Ferrlecit/NS) 110 ml @ 110 mls/hr Q24H IVPB ; Start 09/18/16 at 13:00; Stop 09/22/16 at 13:59 Aspirin (Aspirin) 81 mg ONCE PO ; Start 09/18/16 at 13:00; Stop 09/18/16 at 23: 45 Procedures Procedures ECG demonstrates sinus rhythm at 94 bpm, QRS 90 ms, nonspecific STT wave abnormalities Telemetry reviewed with intermittent a paced rhythm with heart rates ranging from 70s-90s Miguel Ball DO September 18, 2016 13:01
[2016-09-18] MEDS: DOCUSATE SODIUM 100 MG CAP PO SCH ×2 (13:03→20:52)
[2016-09-18] MEDS: SOD FERRIC GLUC COMPLX 125 MG in SOD CHLORIDE 0.9% 100 ML IVPB SCH (13:06)
[2016-09-18] MEDS ORDERED: LEVOFLOXACIN 250MG/D5W (PMX) 50 ML IVPB SCH (15:00)
[2016-09-18] MEDS ORDERED: hydrALAzine 20 MG INJ IV PRN (17:00)
[2016-09-18] MEDS: ATORVASTATIN 40 MG TAB PO SCH (20:52)
[2016-09-18] MEDS ORDERED: ONDANSETRON 4 MG INJ IV PRN (23:00)
[2016-09-18] MEDS ORDERED: METOCLOPRAMIDE 10 MG INJ IV PRN (23:00)
[2016-09-19] VITALS (11 sets, daily range): BP systolic 104–144; BP diastolic 58–79; PULSE 71–90; RESP 18–20
[2016-09-19] MEDS: PROMETHAZINE/CODEINE 5ML CUP PO PRN ×2 (00:59→20:43)
[2016-09-19 07:24] LABS: ADD SCAN DIFF NO
[2016-09-19 07:31] LABS: BASOPHILS % 0.4 % (0.0-2.0); EOSINOPHILS # 0.2 10^3/ul (0.0-0.5); HEMATOCRIT 25.8 % (37.0-47.0); HEMOGLOBIN 8.3 g/dl (12.0-16.0); LYMPHOCYTES % 36.8 % (15.0-51.0); MEAN CORPUSCULAR HEMOGLOBIN 22.2 pg (29.0-33.0); MEAN CORPUSCULAR HGB CONC 32.2 g/dl (32.0-37.0); MEAN PLATELET VOLUME 11.7 fl (7.4-10.4); MONOCYTE # 0.5 10^3/ul (0.3-0.9); MONOCYTES % 9.3 % (0.0-11.0); NEUTROPHIL # 2.7 10^3/ul (1.6-7.5); NEUTROPHILS % 49.1 % (39.0-77.0); PLATELET COUNT 168 10^3/UL (140-415); RED BLOOD COUNT 3.74 10^6/ul (4.20-5.40); RED CELL DISTRIBUTION WIDTH 14.9 % (11.5-14.5); WHITE BLOOD COUNT 5.5 10^3/ul (4.8-10.8)
[2016-09-19 07:53] LABS: CALCIUM 9.1 mg/dl (8.4-10.2); CREATININE 1.05 mg/dl (0.44-1.00); POTASSIUM 3.5 mmol/L (3.5-5.1)
[2016-09-19] MEDS ORDERED: ASPIRIN 81 MG TAB PO SCH (09:00)
[2016-09-19] MEDS ORDERED: METOPROLOL 25 MG TAB PO ONE (09:10)
--- NOTE | 2016-09-19 09:13 | CONS ---
Date/Time of Note Date/Time of Note DATE: 09/19/16 TIME: 09:11 Assessment/Plan Assessment/Plan Additional Assessment/Plan Cough, fevers, chills and myalgias SIRS Mildly elevated troponin Preserved ejection fraction History of pacemaker History of CVA Acute kidney injury Paroxysmal atrial fibrillation -Patient feeling better, on review of telemetry, brief episodes of atrial fibrillation. Patient is aware of her "irregular heartbeats". She states she was on "blood thinners" in the past but this was stopped by her doctor for unknown reason. Would start low-dose beta-toan and monitor blood pressure. Continue aspirin and statin therapy. Consultation Date/Type/Reason Admit Date/Time September 17, 2016 at 12:02 Initial Consult Date Type of Consultation: cv 24 HR Interval Summary Free Text/Dictation Feeling much better today. Body aches have improved. Denies chest pain, shortness of breath, palpitations. Denies dizziness. Exam/Review of Systems Vital Signs Vitals Vital Signs Date Time Temp Pulse Resp B/P Pulse Ox O2 Delivery O2 Flow Rate FiO2 09/19/16 08:17 84 09/19/16 07:46 98.1 18 144/75 96 09/17/16 15:58 Room Air 09/17/16 10:35 2 Intake and Output 09/18/16 09/18/16 09/19/16 15:00 23:00 07:00 Intake Total 700 ml 500 ml Output Total 700 ml 600 ml Balance 0 ml -100 ml Exam No apparent distress Constitutional: alert, frail, oriented Head: normocephalic Neck: supple Respiratory: other (Coarse breath sounds bilaterally, no wheezing) Cardiovascular: other (S1-S2 heard), regular rate and rhythm Gastrointestinal: bowel sounds, non-tender, other (No guarding), soft Extremities: other (No edema or cyanosis) Results Result Diagram: 09/19/16 0650 09/19/16 0650 Results 24 hrs Laboratory Tests Test 09/18/16 09:45 09/19/16 06:50 Troponin I 0.350 *H White Blood Count 5.5 Red Blood Count 3.74 L Hemoglobin 8.3 L Hematocrit 25.8 L Mean Corpuscular Volume 69.0 L Mean Corpuscular Hemoglobin 22.2 L Mean Corpuscular Hemoglobin Concent 32.2 Red Cell Distribution Width 14.9 H Platelet Count 168 Mean Platelet Volume 11.7 H Neutrophils % 49.1 Lymphocytes % 36.8 Monocytes % 9.3 Eosinophils % 4.0 Basophils % 0.4 Nucleated Red Blood Cells % 0.0 Neutrophils # 2.7 Lymphocytes # 2.0 Monocytes # 0.5 Eosinophils # 0.2 Basophils # 0.0 Nucleated Red Blood Cells # 0.0 Sodium Level 139 Potassium Level 3.5 Chloride Level 104 Carbon Dioxide Level 29 Anion Gap 10 Blood Urea Nitrogen 18 Creatinine 1.05 H Glucose Level 85 Calcium Level 9.1 Medications Medications Current Medications Atorvastatin Calcium (Lipitor) 40 mg HS PO Last administered on 09/18/16 20:52 ; Admin Dose 40 MG; Start 09/17/16 at 21:00 Fludrocortisone Acetate (Florinef) 0.1 mg DAILY PO Last administered on 09:29; Admin Dose 0.1 MG; Start 09/18/16 at 09:00 Levetiracetam (Keppra) 250 mg BID PO Last administered on 09/18/16 20:52; Admin Dose 250 MG; Start 09/17/16 at 21:00 Aspirin (Aspirin) 81 mg DAILY PO Last administered on 09/18/16 09:18; Admin Dose 81 MG; Start 09/18/16 at 09:00 Docusate Sodium (Colace) 100 mg BID PO Last administered on 09/18/16 20:52; Admin Dose 100 MG; Start 09/17/16 at 21:00 Famotidine (Pepcid) 20 mg DAILY PO Last administered on 09/18/16 09:29; Admin Dose 20 MG; Start 09/17/16 at 21:00 Enoxaparin Sodium 40 mg 40 mg DAILY SC Last administered on 09/18/16 09:26; Admin Dose 40 MG; Start 09/18/16 at 09:00 Levofloxacin/ Dextrose (Levaquin 250 Mg/ D5W 50 ml (Pmx)) 50 ml @ 50 mls/hr Q24H IVPB Last administered on 09/18/16 15:40; Admin Dose 50 MLS/HR; Start at 15:00 Promethazine HCl/ Codeine 5 ml 5 ml Q4 PRN PO COUGH Last administered on 00:59; Admin Dose 5 ML; Start 09/17/16 at 17:30 Ferric Sodium Gluconate Complex/ Sodium Chloride (Ferrlecit/NS) 110 ml @ 110 mls/hr Q24H IVPB Last administered on 09/18/16 13:06; Admin Dose 110 MLS/HR; Start 09/18/16 at 13:00; Stop 09/22/16 at 13:59 Hydralazine HCl (Apresoline) 10 mg Q4H PRN IV SBP>170 Last administered on 09/18 17:08; Admin Dose 10 MG; Start 09/18/16 at 17:00 Ondansetron HCl (Zofran Inj) 4 mg Q4H PRN IV NAUSEA AND/OR VOMITING; Start at 23:00 Metoclopramide HCl (Reglan) 10 mg Q6H PRN IV NAUSEA; Start 09/18/16 at 23:00 Miguel Ball DO September 19, 2016 09:13
[2016-09-19] MEDS: DOCUSATE SODIUM 100 MG CAP PO SCH ×2 (10:17→20:42)
[2016-09-19] MEDS: LEVETIRACETAM 250 MG TAB PO SCH ×2 (10:18→20:42)
[2016-09-19] MEDS: FLUDROCORTISONE 0.1 MG TAB PO SCH (10:18)
[2016-09-19] MEDS: ASPIRIN 81 MG TAB PO SCH (10:18)
[2016-09-19] MEDS: DRONEDARONE HYDROCHLORIDE 400 MG TAB PO SCH ×2 (10:19→16:38)
[2016-09-19] MEDS: ENOXAPARIN 40 MG/0.4 ML SYG SC SCH (10:21)
[2016-09-19] MEDS: FAMOTIDINE 20 MG TAB PO SCH (10:22)
--- NOTE | 2016-09-19 12:17 | PN ---
Date/Time of Note Date/Time of Note DATE: 09/19/16 TIME: 12:14 Assessment/Plan VTE Prophylaxis VTE Prophylaxis Intervention: LMWH Lines/Catheters IV [facility]from [facility] Saline Lock Urinary Cath still in place: No Assessment/Plan Assessment/Plan 1. Sepsis thought to be secondary to viral syndrome / acute bronchitis 2. Elevated troponin likely from demand, however rule out acute NSTEMI 2. Paroxysmal atrial fibrillation : Currently rate controlled. Patient has refused anticoagulation therapy per family. 3. History of sick sinus syndrome status post pacemaker 4. Depression 5. History of falls and one seizure episode 6. Possible orthostatic hypotension on fludrocortisone 7. Dyslipidemia 8. History of ovarian cancer for which she has been cancer free for more than 20 years previous CVA 9. Previous stroke 10. Hypochromic microcytic anemia likely secondary to iron deficiency, source unknown at this time. Likely as a result of poor nutrition PLAN: * started on Metoprolol By cardiology but pt was on multaq at home 400mg BID, will check with cardiology if ok to resume that instead of Metoprolol * BP stable * IV levaquin * IV iron for iron def anemia * Codeine/promethazine cough syrup Prophylaxis: Lovenox and H2 blockers Subjective 24 Hr Interval Summary Free Text/Dictation c/o cough, had a persistent coughing spells, still wheezing, c/o dizzines Exam/Review of Systems Vital Signs Vitals Vital Signs Date Time Temp Pulse Resp B/P Pulse Ox O2 Delivery O2 Flow Rate FiO2 09/19/16 12:00 79 09/19/16 11:25 98.0 18 104/58 99 09/19/16 08:00 Room Air 09/19/16 07:40 2.0 Intake and Output 09/18/16 09/18/16 09/19/16 15:00 23:00 07:00 Intake Total 700 ml 500 ml Output Total 700 ml 600 ml Balance 0 ml -100 ml Exam Constitutional: alert, frail, oriented (Occasional confusion with memory loss, no apparent distress) Neck: supple Respiratory: bibasilar wheezing, +, coughing spells continuous Cardiovascular: other (S1-S2 heard), regular rate and rhythm Gastrointestinal: bowel sounds, non-tender, other (No guarding), soft Extremities: edema (Trace) Results Result Diagram: 09/19/16 0650 09/19/16 0650 Results 24 hrs Laboratory Tests Test 09/19/16 06:50 White Blood Count 5.5 Red Blood Count 3.74 L Hemoglobin 8.3 L Hematocrit 25.8 L Mean Corpuscular Volume 69.0 L Mean Corpuscular Hemoglobin 22.2 L Mean Corpuscular Hemoglobin Concent 32.2 Red Cell Distribution Width 14.9 H Platelet Count 168 Mean Platelet Volume 11.7 H Neutrophils % 49.1 Lymphocytes % 36.8 Monocytes % 9.3 Eosinophils % 4.0 Basophils % 0.4 Nucleated Red Blood Cells % 0.0 Neutrophils # 2.7 Lymphocytes # 2.0 Monocytes # 0.5 Eosinophils # 0.2 Basophils # 0.0 Nucleated Red Blood Cells # 0.0 Sodium Level 139 Potassium Level 3.5 Chloride Level 104 Carbon Dioxide Level 29 Anion Gap 10 Blood Urea Nitrogen 18 Creatinine 1.05 H Glucose Level 85 Calcium Level 9.1 Medications Medications Current Medications Atorvastatin Calcium (Lipitor) 40 mg HS PO Last administered on 09/18/16 20:52 ; Admin Dose 40 MG; Start 09/17/16 at 21:00 Fludrocortisone Acetate (Florinef) 0.1 mg DAILY PO Last administered on 10:18; Admin Dose 0.1 MG; Start 09/18/16 at 09:00 Levetiracetam (Keppra) 250 mg BID PO Last administered on 09/19/16 10:18; Admin Dose 250 MG; Start 09/17/16 at 21:00 Aspirin (Aspirin) 81 mg DAILY PO Last administered on 09/19/16 10:18; Admin Dose 81 MG; Start 09/18/16 at 09:00 Docusate Sodium (Colace) 100 mg BID PO Last administered on 09/19/16 10:17; Admin Dose 100 MG; Start 09/17/16 at 21:00 Famotidine (Pepcid) 20 mg DAILY PO Last administered on 09/19/16 10:22; Admin Dose 20 MG; Start 09/17/16 at 21:00 Enoxaparin Sodium 40 mg 40 mg DAILY SC Last administered on 09/19/16 10:21; Admin Dose 40 MG; Start 09/18/16 at 09:00 Levofloxacin/ Dextrose (Levaquin 250 Mg/ D5W 50 ml (Pmx)) 50 ml @ 50 mls/hr Q24H IVPB Last administered on 09/18/16 15:40; Admin Dose 50 MLS/HR; Start at 15:00 Promethazine HCl/ Codeine 5 ml 5 ml Q4 PRN PO COUGH Last administered on 00:59; Admin Dose 5 ML; Start 09/17/16 at 17:30 Ferric Sodium Gluconate Complex/ Sodium Chloride (Ferrlecit/NS) 110 ml @ 110 mls/hr Q24H IVPB Last administered on 09/18/16 13:06; Admin Dose 110 MLS/HR; Start 09/18/16 at 13:00; Stop 09/22/16 at 13:59 Hydralazine HCl (Apresoline) 10 mg Q4H PRN IV SBP>170 Last administered on 09/18 17:08; Admin Dose 10 MG; Start 09/18/16 at 17:00 Ondansetron HCl (Zofran Inj) 4 mg Q4H PRN IV NAUSEA AND/OR VOMITING; Start at 23:00 Metoclopramide HCl (Reglan) 10 mg Q6H PRN IV NAUSEA; Start 09/18/16 at 23:00 Metoprolol Tartrate (Lopressor) 12.5 mg BID PO ; Start 09/19/16 at 21:00 SHAINA GRAMAJO MD September 19, 2016 12:17
[2016-09-19] MEDS: CEFTRIAXONE 1 GM/50 ML (PMX) 50 ML IVPB SCH (12:47)
[2016-09-19] MEDS: SOD FERRIC GLUC COMPLX 125 MG in SOD CHLORIDE 0.9% 100 ML IVPB SCH (12:47)
[2016-09-19] MEDS: ATORVASTATIN 40 MG TAB PO SCH (20:42)
[2016-09-19] MEDS: METOPROLOL 25 MG TAB PO SCH (20:43)
[2016-09-20] VITALS (7 sets, daily range): BP systolic 117–133; BP diastolic 58–79; PULSE 69–72; RESP 18
[2016-09-20] MEDS: PROMETHAZINE/CODEINE 5ML CUP PO PRN ×3 (04:59→13:07)
[2016-09-20 07:29] LABS: ADD SCAN DIFF NO
[2016-09-20 07:33] LABS: EOSINOPHILS # 0.5 10^3/ul (0.0-0.5); EOSINOPHILS % 8.2 % (0.0-7.0); HEMATOCRIT 26.7 % (37.0-47.0); HEMOGLOBIN 8.6 g/dl (12.0-16.0); LYMPHOCYTES # 1.1 10^3/ul (0.8-2.9); LYMPHOCYTES % 16.3 % (15.0-51.0); MEAN CORPUSCULAR HEMOGLOBIN 22.1 pg (29.0-33.0); MEAN CORPUSCULAR HGB CONC 32.2 g/dl (32.0-37.0); MEAN CORPUSCULAR VOLUME 68.6 fl (82.0-101.0); MEAN PLATELET VOLUME 12.4 fl (7.4-10.4); MONOCYTE # 0.4 10^3/ul (0.3-0.9); MONOCYTES % 6.5 % (0.0-11.0); NEUTROPHIL # 4.4 10^3/ul (1.6-7.5); NEUTROPHILS % 68.7 % (39.0-77.0); PLATELET COUNT 210 10^3/UL (140-415); RED BLOOD COUNT 3.89 10^6/ul (4.20-5.40); RED CELL DISTRIBUTION WIDTH 14.7 % (11.5-14.5); WHITE BLOOD COUNT 6.4 10^3/ul (4.8-10.8)
[2016-09-20 07:54] LABS: INR 1.12; PROTIME 14.4 Sec (12.2-14.2); PT RATIO 1.1
[2016-09-20 07:55] LABS: PARTIAL THROMBOPLASTIN TIME 32.8 Sec (25.0-35.0)
[2016-09-20 08:00] LABS: CALCIUM 9.4 mg/dl (8.4-10.2); CREATININE 1.39 mg/dl (0.44-1.00); POTASSIUM 4.4 mmol/L (3.5-5.1)
[2016-09-20] MEDS: DRONEDARONE HYDROCHLORIDE 400 MG TAB PO SCH (08:17)
[2016-09-20] MEDS: FAMOTIDINE 20 MG TAB PO SCH (08:17)
[2016-09-20] MEDS: DOCUSATE SODIUM 100 MG CAP PO SCH (08:18)
[2016-09-20] MEDS: FLUDROCORTISONE 0.1 MG TAB PO SCH (08:18)
[2016-09-20] MEDS: LEVETIRACETAM 250 MG TAB PO SCH (08:18)
[2016-09-20] MEDS: METOPROLOL 25 MG TAB PO SCH (08:18)
[2016-09-20] MEDS: ENOXAPARIN 40 MG/0.4 ML SYG SC SCH (08:30)
[2016-09-20] MEDS ORDERED: METO-448 PO (10:46)
--- NOTE | 2016-09-20 10:46 | PDOCDIS ---
Discharge Instructions CONDITION Patient Condition: Good HOME CARE INSTRUCTIONS: Diet Instructions: Regular ACTIVITY: Activity Restrictions: No Restrictions FOLLOW UP/APPOINTMENTS Appointments F/U WITH YOUR PCP IN 1-2 WEEKS JOSE CORDERO September 20, 2016 10:46
--- NOTE | 2016-09-20 11:13 | PN ---
Date/Time of Note Date/Time of Note DATE: 09/20/16 TIME: 11:12 Assessment/Plan VTE Prophylaxis VTE Prophylaxis Intervention: SCD's Lines/Catheters [facility] Saline Lock Urinary Cath still in place: No Assessment/Plan Assessment/Plan Cough, fevers, chills and myalgias SIRS Mildly elevated troponin Preserved ejection fraction History of pacemaker History of CVA Acute kidney injury Paroxysmal atrial fibrillation -Patient feeling better, on review of telemetry, brief episodes of atrial fibrillation. Patient is aware of her "irregular heartbeats". She states she was on "blood thinners" in the past but this was stopped by her doctor for unknown reason. Would start low-dose beta-toan and monitor blood pressure. Continue aspirin and statin therapy. -d/c planning Subjective 24 Hr Interval Summary Free Text/Dictation The patient with no comaplaints Exam/Review of Systems Vital Signs Vitals Vital Signs Date Time Temp Pulse Resp B/P Pulse Ox O2 Delivery O2 Flow Rate FiO2 09/20/16 11:09 98.4 65 18 117/58 96 09/20/16 08:20 Nasal Cannula 2.0 Intake and Output 09/19/16 09/19/16 09/20/16 15:00 23:00 07:00 Intake Total 800 ml 700 ml Output Total 3 ml Balance 797 ml 700 ml Results Result Diagram: 09/20/16 0635 09/20/16 0635 Results 24 hrs Laboratory Tests Test 09/20/16 06:35 White Blood Count 6.4 Red Blood Count 3.89 L Hemoglobin 8.6 L Hematocrit 26.7 L Mean Corpuscular Volume 68.6 L Mean Corpuscular Hemoglobin 22.1 L Mean Corpuscular Hemoglobin Concent 32.2 Red Cell Distribution Width 14.7 H Platelet Count 210 # Mean Platelet Volume 12.4 H Neutrophils % 68.7 Lymphocytes % 16.3 Monocytes % 6.5 Eosinophils % 8.2 H Basophils % 0.0 Nucleated Red Blood Cells % 0.0 Neutrophils # 4.4 Lymphocytes # 1.1 Monocytes # 0.4 Eosinophils # 0.5 Basophils # 0.0 Nucleated Red Blood Cells # 0.0 Prothrombin Time 14.4 H Prothrombin Time Ratio 1.1 INR International Normalized Ratio 1.12 Activated Partial Thromboplast Time 32.8 Sodium Level 139 Potassium Level 4.4 Chloride Level 105 Carbon Dioxide Level 29 Anion Gap 9 Blood Urea Nitrogen 26 H Creatinine 1.39 H Glucose Level 83 Calcium Level 9.4 Medications Medications Current Medications Atorvastatin Calcium (Lipitor) 40 mg HS PO Last administered on 09/19/16 20:42 ; Admin Dose 40 MG; Start 09/17/16 at 21:00 Fludrocortisone Acetate (Florinef) 0.1 mg DAILY PO Last administered on 08:18; Admin Dose 0.1 MG; Start 09/18/16 at 09:00 Levetiracetam (Keppra) 250 mg BID PO Last administered on 09/20/16 08:18; Admin Dose 250 MG; Start 09/17/16 at 21:00 Aspirin (Aspirin) 81 mg DAILY PO Last administered on 09/19/16 10:18; Admin Dose 81 MG; Start 09/18/16 at 09:00 Docusate Sodium (Colace) 100 mg BID PO Last administered on 09/20/16 08:18; Admin Dose 100 MG; Start 09/17/16 at 21:00 Famotidine (Pepcid) 20 mg DAILY PO Last administered on 09/20/16 08:17; Admin Dose 20 MG; Start 09/17/16 at 21:00 Enoxaparin Sodium (Lovenox) 40 mg DAILY SC Last administered on 09/20/16 08:30 ; Admin Dose 40 MG; Start 09/18/16 at 09:00 Promethazine HCl/ Codeine 5 ml 5 ml Q4 PRN PO COUGH Last administered on 09:12; Admin Dose 5 ML; Start 09/17/16 at 17:30 Ferric Sodium Gluconate Complex/ Sodium Chloride (Ferrlecit/NS) 110 ml @ 110 mls/hr Q24H IVPB Last administered on 09/19/16 12:47; Admin Dose 110 MLS/HR; Start 09/18/16 at 13:00; Stop 09/22/16 at 13:59 Hydralazine HCl (Apresoline) 10 mg Q4H PRN IV SBP>170 Last administered on 09/18 17:08; Admin Dose 10 MG; Start 09/18/16 at 17:00 Ondansetron HCl (Zofran Inj) 4 mg Q4H PRN IV NAUSEA AND/OR VOMITING; Start at 23:00 Metoclopramide HCl (Reglan) 10 mg Q6H PRN IV NAUSEA; Start 09/18/16 at 23:00 Metoprolol Tartrate 12.5 mg 12.5 mg BID PO Last administered on 09/20/16 08:18 ; Admin Dose 12.5 MG; Start 09/19/16 at 21:00 Ceftriaxone Sodium (Rocephin) 50 ml @ 100 mls/hr Q24H IVPB Last administered on 09/19/16 12:47; Admin Dose 100 MLS/HR; Start 09/19/16 at 13:00 OMAR LUCIANO MD September 20, 2016 11:13
[2016-09-20] MEDS: CEFTRIAXONE 1 GM/50 ML (PMX) 50 ML IVPB SCH (12:57)
[2016-09-20] MEDS: SOD FERRIC GLUC COMPLX 125 MG in SOD CHLORIDE 0.9% 100 ML IVPB SCH (13:00)
--- NOTE | 2016-09-21 06:08 | DS ---
DATE OF ADMISSION: 09/19/2016 DATE OF DISCHARGE: 09/20/2016 DISCHARGE DIAGNOSES: 1. Sepsis secondary to viral syndrome, now resolved. 2. Elevated troponin secondary to demand ischemia, stable. 3. Paroxysmal atrial fibrillation. The patient is refusing anticoagulation and has refused in the past but will take aspirin. Continue aspirin ____ beta toan. 4. History of sick sinus syndrome, status post pacemaker placement in the past. 5. Depression. 6. History of falls. 7. History of orthostatic hypotension, on fludrocortisone. 8. Dyslipidemia. 9. History of ovarian cancer. The patient has been cancer free for 20 years. 10. History of cerebrovascular accident. 11. Anemia of chronic disease. HOSPITAL COURSE: The patient is an 81-year-old female with a history of a-fib, depression, falls, s eizures, CVA. The patient was brought in with fever and lethargy. The patient had no white count o n arrival. She did have a fever. She was felt to have a viral syndrome. Her blood cultures were n egative. Influenza was negative. Urine culture was negative. The patient's fevers resolved. Of n ote, the patient did have elevated troponins, thought to be secondary to demand ischemia. The patie nt was seen by cardiology. The patient does have paroxysmal a-fib. She has refused anticoagulation in the past. She is taking aspirin but does not want anything more than that. The patient was sta rted on metoprolol per cardiology. The patient was felt to be stable for discharge. On the day of discharge, the patient's vitals, labs, and physical exam were stable. She had no acute complaints. Questions were answered. CONDITION ON DISCHARGE: Stable. DISPOSITION: To home. MEDICATIONS: The patient is to continue her usual home medications. She was given a prescription f or metoprolol 12.5 mg p.o. b.i.d. FOLLOWUP: The patient is to follow up with her PCP in 1 to 2 weeks. Greater than 30 minutes was spent coordinating discharge of patient ____. Dictated By: JOSE CORDERO MD BS/NTS Conf#: [id number] DID#: [id number]
== END 2016-09-20 14:14 | disposition home or self-care (01) | DRG 872 ==
LOC: E/R 09:47 → PP2 12:02 → TEL 17:45 → OBSVTOIN 09-19 16:00
PROVIDERS: ADMIT Internal Medicine; ATTEND Internal Medicine
DX: A41.89 Other specified sepsis (principal); N17.9 Acute kidney failure, unspecified; I24.8 Other forms of acute ischemic heart disease; I48.0 Paroxysmal atrial fibrillation; Z95.0 Presence of cardiac pacemaker; F32.9 Major depressive disorder, single episode, unspecified; E78.5 Hyperlipidemia, unspecified; D63.8 Anemia in other chronic diseases classified elsewhere; Z86.73 Personal history of transient ischemic attack (TIA), and cerebral infarction without residual deficits; J20.9 Acute bronchitis, unspecified; Z85.43 Personal history of malignant neoplasm of ovary
CPT/HCPCS: 36415; 71010; 80048; 80053; 81003; 82550; 82553; 83036; 83540; 83605; 83735; 84443; 84484; 85025; 85610; 85730; 87040; 87086; 87400; 93005; 93306; 99217; G0378; J0360; J0696; J1650; J1956; J2916; J7030; J7040; P9612

== ENCOUNTER 2017-09-08 15:32 | Emergency (ER) | END 2017-09-08 23:16 | disposition left against medical advice (07) ==

== ENCOUNTER 2017-09-13 12:51 | Emergency (ER) | END 2017-09-13 19:45 | disposition short-term general hospital (02) ==

== ENCOUNTER 2018-03-18 00:44 | Emergency (ER) | END 2018-03-18 06:20 | disposition short-term general hospital (02) ==